=== PATIENT | male | born 1965 | race Two or more races ===

== ENCOUNTER 2017-08-03 20:48 | Emergency (ER) | payer SELFPAY ==
[~2017-08-03] VITALS: Ht 180.3 cm; Wt 101.6 kg
[2017-08-03 20:50] VITALS: BP 140/80
== END 2017-08-03 21:34 | disposition home or self-care (01) ==
LOC: ED 21:20
DX: K08.89 Other specified disorders of teeth and supporting structures (principal)
CPT/HCPCS: 99283